=== PATIENT | male | born 1970 | race Caucasian/White ===

== ENCOUNTER 2020-06-09 14:34 | Emergency (ER) | payer MEDICARE ==
[~2020-06-09] VITALS: Ht 180.3 cm; Wt 75.0 kg
[2020-06-09] MEDS ORDERED: ELVI1TAB3 PO (14:45)
[2020-06-09 16:02] LABS: COVID AG,FIA SOURCE NASOPHARYNGEAL
[2020-06-09 16:51] VITALS: BP 125/71
== END 2020-06-09 16:53 | disposition home or self-care (01) ==
LOC: EMS 14:38
DX: M79.644 Pain in right finger(s) (principal); Z20.822 Contact with and (suspected) exposure to COVID-19
CPT/HCPCS: 87426; 99283; U0003; 99284